=== PATIENT | female | born 1945 | race Caucasian/White ===

== ENCOUNTER 2018-12-20 15:56 | Emergency (ER) | payer SELFPAY ==
[~2018-12-20] VITALS: Ht 157.5 cm; Wt 66.7 kg
[~2018-12-20 15:56] MED LIST: IBUP-1542 PO; SULF1TAB31 PO
[2018-12-20 16:04] VITALS: BP 161/70; PULSE 66; RESP 18; Ht 157.5 cm; Wt 66.7 kg
== END 2018-12-20 17:16 | disposition home or self-care (01) ==
LOC: FTE 15:56
DX: L03.031 Cellulitis of right toe (principal); I10 Essential (primary) hypertension; E11.9 Type 2 diabetes mellitus without complications